=== PATIENT | male | born 1995 | race Two or more races ===

== ENCOUNTER 2022-09-06 15:33 | Emergency (ER) | payer OTHER ==
[~2022-09-06] VITALS: Ht 175.3 cm; Wt 99.8 kg
[~2022-09-06 15:33] MED LIST: BACTROBAN22 GM TP; CATAFLAM50 MG PO; PERCOCET 5/321 UDTAB PO; SEPTRA DS TABLE1 TAB PO
== END 2022-09-06 17:41 | disposition home or self-care (01) ==
LOC: ER 15:33
DX: J00 Acute nasopharyngitis [common cold] (principal); Z20.822 Contact with and (suspected) exposure to COVID-19